=== PATIENT | male | born 1945 | race Caucasian/White ===

== ENCOUNTER → 2017-04-19 | Outpatient (CLI) | payer OTHER | LOC: US 12:52 | PROVIDERS: Internal Medicine Nephrology | DX: M54.5 Low back pain (principal); M54.6 Pain in thoracic spine; M54.2 Cervicalgia | CPT/HCPCS: 36415; 80053; 82550; 82570; 84156; 89050 ==

== ENCOUNTER → 2021-01-29 | Outpatient (CLI) | payer OTHER | LOC: KOH-I 09:57 | DX: R06.00 Dyspnea, unspecified (principal); Z86.16 Personal history of COVID-19 | CPT/HCPCS: 71046 ==

== ENCOUNTER → 2021-02-20 | Outpatient (CLI) | payer OTHER | LOC: EMI 02-19 16:45 | DX: M48.062 Spinal stenosis, lumbar region with neurogenic claudication (principal); M47.816 Spondylosis without myelopathy or radiculopathy, lumbar region; M47.817 Spondylosis without myelopathy or radiculopathy, lumbosacral region; M48.07 Spinal stenosis, lumbosacral region; M53.2X6 Spinal instabilities, lumbar region | CPT/HCPCS: 72148 ==

== ENCOUNTER → 2021-04-28 | Outpatient (CLI) | payer OTHER ==
[2021-04-28 18:31] LABS: HEMOGLOBIN 13.5 gm/dl (14.0-17.5); RED BLOOD COUNT 4.06 M/UL (4.20-5.50)
== END ==
LOC: LAB 17:42
PROVIDERS: Nurse Practitioner Family
DX: R10.32 Left lower quadrant pain (principal); R11.0 Nausea; M25.50 Pain in unspecified joint
CPT/HCPCS: 80053; 81001; 82150; 82308; 83690; 85025; 85652

== ENCOUNTER → 2021-04-29 | Outpatient (CLI) | payer OTHER | LOC: RAD 10:42 | DX: R31.9 Hematuria, unspecified (principal) | CPT/HCPCS: 74018 ==

== ENCOUNTER → 2021-05-12 | Outpatient (CLI) | payer OTHER | LOC: CT 07:21 | DX: R10.32 Left lower quadrant pain (principal); R31.9 Hematuria, unspecified; N28.9 Disorder of kidney and ureter, unspecified; E86.0 Dehydration; N20.0 Calculus of kidney | CPT/HCPCS: 96360; J7030; Q9965 ==

== ENCOUNTER → 2021-06-26 | Outpatient (CLI) | payer OTHER | LOC: CT 19:18 → EROP 19:18 → GENOP 19:18 | DX: R79.89 Other specified abnormal findings of blood chemistry (principal); R06.02 Shortness of breath | CPT/HCPCS: 82565; Q9967 ==

== ENCOUNTER → 2021-06-26 | Outpatient (CLI) | payer OTHER | LOC: LAB 15:50 | DX: R06.02 Shortness of breath (principal); R06.00 Dyspnea, unspecified; Z86.16 Personal history of COVID-19 | CPT/HCPCS: 71046; 82565; 83880; 85379 ==

== ENCOUNTER → 2021-06-30 | Outpatient (CLI) | payer OTHER | LOC: KOH-I 15:00 | DX: R41.82 Altered mental status, unspecified (principal); R26.81 Unsteadiness on feet | CPT/HCPCS: 70450 ==

== ENCOUNTER → 2021-07-31 | Outpatient (CLI) | payer OTHER | LOC: ECHO 03-13 10:00 → NM 03-13 10:00 → ECHO 03-13 12:00 → NM 07-15 11:45 → ECHO 07-15 11:45 → NM 07-15 13:00 | DX: I10 Essential (primary) hypertension (principal); R60.0 Localized edema; R06.00 Dyspnea, unspecified; R06.02 Shortness of breath; R07.9 Chest pain, unspecified; I08.3 Combined rheumatic disorders of mitral, aortic and tricuspid valves | CPT/HCPCS: ECHO; 78452; 93017; 93306; A9502; J2785 ==

== ENCOUNTER → 2021-11-24 | Outpatient (CLI) | payer OTHER | LOC: EMI 12:43 | DX: M50.11 Cervical disc disorder with radiculopathy, high cervical region (principal) | CPT/HCPCS: 72141 ==

== ENCOUNTER → 2022-01-06 | Outpatient (CLI) | payer OTHER | LOC: EXRD 13:01 | DX: N28.1 Cyst of kidney, acquired (principal) | CPT/HCPCS: 76775 ==

== ENCOUNTER → 2022-01-06 | Outpatient (CLI) | payer OTHER | LOC: LAB 12:10 | PROVIDERS: Internal Medicine Nephrology | DX: N18.32 Chronic kidney disease, stage 3b (principal) | CPT/HCPCS: 36415; 80053; 82570; 83970; 84100; 84156 ==

== ENCOUNTER → 2022-04-26 | Outpatient (CLI) | payer OTHER | LOC: KOH-I 12:24 | DX: M51.16 Intervertebral disc disorders with radiculopathy, lumbar region (principal) | CPT/HCPCS: 72100 ==

== ENCOUNTER → 2022-04-30 | Outpatient (CLI) | payer OTHER | LOC: EMI 15:48 | DX: M51.17 Intervertebral disc disorders with radiculopathy, lumbosacral region (principal); M47.27 Other spondylosis with radiculopathy, lumbosacral region; M48.07 Spinal stenosis, lumbosacral region | CPT/HCPCS: 72148 ==

== ENCOUNTER → 2022-06-23 | Outpatient (CLI) | payer OTHER | LOC: LAB 14:32 | DX: J01.90 Acute sinusitis, unspecified (principal); Z20.822 Contact with and (suspected) exposure to COVID-19 | CPT/HCPCS: U0002 ==